=== PATIENT | female | born 1955 | race Caucasian/White ===

== ENCOUNTER 2024-02-27 20:50 | Inpatient (IN) | payer MEDICARE, OTHER ==
[~2024-02-27] VITALS: Ht 157.5 cm; Wt 77.1 kg
[2024-02-27 22:32] LABS: ALBUMIN 3.7 g/dL (3.4-5.0); CALCIUM 9.3 mg/dL (8.5-10.1); CREATININE 0.9 mg/dL (0.6-1.3); POTASSIUM 3.8 mmol/L (3.5-5.1); TOTAL PROTEIN, SERUM 7.5 g/dL (6.4-8.2)
[2024-02-27 22:38] LABS: BASOPHILS % (AUTO) 0.3 % (0.0-2.0); HEMATOCRIT 37.5 % (31.2-41.9); HEMOGLOBIN 12.8 g/dL (10.9-14.3); LYMPHOCYTES # (AUTO) 1.1 K/uL (0.8-4.8); MEAN CORPUSCULAR HGB CONC 34 g/dL (32.3-35.6); MEAN CORPUSCULAR VOLUME 96.2 fL (75.5-95.3); MONOCYTES # (AUTO) 0.9 K/uL (0.1-1.30); MONOCYTES % (AUTO) 11.3 % (0.0-11.0); NEUTROPHILS # (AUTO) 6.1 K/uL (1.8-8.9); NEUTROPHILS % (AUTO) 74.4 % (38.5-71.5); PLATELET COUNT (AUTO) 352 K/uL (179-408); RED BLOOD CELL COUNT(AUTO) 3.89 MIL/uL (3.63-4.92); RED CELL DISTRIBUTION WIDTH 13.7 % (12.3-17.7); WHITE BLOOD COUNT (AUTO) 8.2 K/uL (3.8-11.8)
[2024-02-27] MEDS: IV NS 1000 ML 1,000 ML IV ONE (23:45)
[2024-02-28] MEDS ORDERED: ALPR0.5T8 PO (14:04)
[2024-02-28] MEDS ORDERED: SUCR1TAB PO (14:04)
[2024-02-28] MEDS ORDERED: CLOP75TA33 PO (14:04)
[2024-02-28] MEDS ORDERED: ASPI81TA31 PO (14:04)
[2024-02-28] MEDS ORDERED: AMLO-212 PO (14:04)
[2024-02-28] MEDS ORDERED: FAMO20TA8 PO (14:04)
[2024-02-28] MEDS ORDERED: LEVO75TA7 PO (14:04)
[2024-02-28] MEDS ORDERED: ATOR80TA PO (14:04)
[2024-02-28] MEDS ORDERED: SUCRALFATE 1 G/10 ML LIQUID UDC ONE ×2 (16:59→21:43)
[2024-02-28] MEDS: SUCRALFATE 1 G TABLET PO SCH (17:00)
[2024-02-29] MEDS ORDERED: CLOPIDOGREL 75 MG TABLET PO SCH (07:00)
[2024-02-29] MEDS ORDERED: LEVOTHYROXINE SODIUM 75 MCG TABLET ONE (07:01)
[2024-02-29] MEDS: LEVOTHYROXINE SODIUM 75 MCG TABLET PO SCH (07:06)
[2024-02-29 07:25] LABS: BASOPHILS % (AUTO) 0.5 % (0.0-2.0); EOSINOPHILS % (AUTO) 0.1 % (0.0-7.0); HEMATOCRIT 37.6 % (31.2-41.9); HEMOGLOBIN 13.2 g/dL (10.9-14.3); LYMPHOCYTES # (AUTO) 1.5 K/uL (0.8-4.8); LYMPHOCYTES % (AUTO) 19.1 % (20.5-51.5); MEAN CORPUSCULAR HEMOGLOBIN 33.9 uug (24.7-32.8); MEAN CORPUSCULAR HGB CONC 35 g/dL (32.3-35.6); MEAN CORPUSCULAR VOLUME 96.9 fL (75.5-95.3); MONOCYTES # (AUTO) 0.9 K/uL (0.1-1.30); MONOCYTES % (AUTO) 11.3 % (0.0-11.0); NEUTROPHILS # (AUTO) 5.5 K/uL (1.8-8.9); PLATELET COUNT (AUTO) 319 K/uL (179-408); RED BLOOD CELL COUNT(AUTO) 3.88 MIL/uL (3.63-4.92); RED CELL DISTRIBUTION WIDTH 13.9 % (12.3-17.7)
[2024-02-29] MEDS: SUCRALFATE 1 G TABLET PO SCH (07:30)
[2024-02-29 07:33] LABS: DIFFERENTIAL COMMENT 1
[2024-02-29 07:45] LABS: CREATININE 0.8 mg/dL (0.6-1.3); MAGNESIUM 2.3 mg/dL (1.8-2.4); PHOSPHOROUS 2.9 mg/dL (2.5-4.9); POTASSIUM 3.4 mmol/L (3.5-5.1)
[2024-02-29 08:06] LABS: THYROID STIMULATING HORMONE 8.25 mIU/mL (0.358-3.740)
[2024-02-29] MEDS ORDERED: ASPIRIN 81 MG TAB.CHEW ONE (08:45)
[2024-02-29] MEDS ORDERED: FAMOTIDINE 20 MG TABLET ONE (08:45)
[2024-02-29] MEDS ORDERED: CLOPIDOGREL 75 MG TABLET ONE (08:45)
[2024-02-29] MEDS ORDERED: AMLODIPINE 5 MG TABLET ONE (08:45)
[2024-02-29] MEDS: ASPIRIN 81 MG TAB.CHEW PO SCH (08:55)
[2024-02-29] MEDS: CLOPIDOGREL 75 MG TABLET PO SCH (08:55)
[2024-02-29] MEDS: AMLODIPINE 5 MG TABLET PO SCH (08:55)
[2024-02-29] MEDS: FAMOTIDINE 20 MG TABLET PO SCH (08:55)
[2024-02-29] MEDS ORDERED: ATORVASTATIN 40 MG TABLET PO SCH (09:00)
[2024-02-29] MEDS: ATORVASTATIN 40 MG TABLET PO SCH (21:00)
[2024-02-29 21:20] VITALS: BP 149/83; TEMP 98.8; O2SAT 96
[2024-02-29] MEDS ORDERED: ZOLPIDEM 5 MG TABLET PO PRN ×2 (21:45)
[2024-02-29] MEDS ORDERED: ACETAMINOPHEN 325 MG TABLET PO PRN (21:45)
[2024-02-29] MEDS ORDERED: LORAZEPAM 0.5 MG TABLET PO PRN ×2 (21:45)
[2024-02-29] MEDS ORDERED: MAGNESIUM HYDROXIDE 30 ML LIQUID UDC PO PRN (21:45)
[2024-02-29] MEDS ORDERED: MAG HYDROX/AL HYDROX/SIMETH 30 ML LIQUID UDC PO PRN (21:45)
[2024-02-29] MEDS: BLOOD SUGAR DIAGNOSTIC 1 EACH STRIP VI ONE (22:20)
[2024-03-01] MEDS: LEVOTHYROXINE SODIUM 88 MCG TABLET PO SCH (06:46)
[2024-03-01] MEDS ORDERED: LEVOTHYROXINE SODIUM 75 MCG TABLET PO SCH (07:00)
[2024-03-01] MEDS ORDERED: LORAZEPAM 0.5 MG TABLET PO PRN (08:00)
[2024-03-01 11:28] VITALS: BP 161/66; TEMP 98; O2SAT 100
[2024-03-01] MEDS: ESCITALOPRAM OXALATE 10 MG TABLET PO SCH (12:28)
[2024-03-01 15:26] VITALS: BP 133/64; TEMP 98; O2SAT 100
[2024-03-01 20:00] VITALS: BP 157/73; TEMP 98.2; O2SAT 97
[2024-03-01] MEDS: LORAZEPAM 1 MG TABLET PO PRN (20:41)
[2024-03-02 07:57] VITALS: BP 160/66; TEMP 98.4; O2SAT 99
[2024-03-02 15:04] VITALS: BP 116/74; TEMP 98; O2SAT 96
[2024-03-02 20:00] VITALS: BP 155/75; TEMP 98.6; O2SAT 97
[2024-03-03 08:12] VITALS: BP 137/72; TEMP 98.2; O2SAT 96
[2024-03-03 16:04] VITALS: BP 154/73; TEMP 98; O2SAT 96
[2024-03-03] MEDS: ENSURE ENLIVE (VAN) 240 ML LIQUID PO SCH (17:39)
[2024-03-03 20:00] VITALS: BP 138/72; TEMP 98; O2SAT 94
[2024-03-04 08:07] VITALS: BP 177/88; TEMP 97.7; O2SAT 100
[2024-03-04] MEDS: OLANZAPINE 2.5 MG TABLET PO SCH (09:43)
[2024-03-04 16:14] VITALS: BP 137/68; TEMP 97.4; O2SAT 100
[2024-03-04 20:33] VITALS: BP 142/66; TEMP 97.8; O2SAT 97
[2024-03-05 08:16] VITALS: BP 110/60; TEMP 98.2; O2SAT 100
[2024-03-05 16:10] VITALS: BP 122/51; TEMP 98.2; O2SAT 100
[2024-03-05 20:00] VITALS: BP 115/65; TEMP 98.6; O2SAT 95
[2024-03-06 08:10] VITALS: BP 149/75; TEMP 98.2; O2SAT 96
[2024-03-06 16:10] VITALS: BP 155/55; TEMP 97.8; O2SAT 98
[2024-03-06 20:09] VITALS: BP 146/76; TEMP 98.1; O2SAT 96
[2024-03-07 08:10] VITALS: BP 146/58; TEMP 98.3; O2SAT 96
[2024-03-07] MEDS: VENLAFAXINE XR 37.5 MG CAP.SR.24H PO SCH (09:12)
[2024-03-07 16:10] VITALS: BP 128/61; TEMP 98; O2SAT 98
[2024-03-07 19:53] VITALS: BP 139/63; TEMP 98.2; O2SAT 96
[2024-03-08 09:40] VITALS: BP 128/62; TEMP 98; O2SAT 100
[2024-03-08] MEDS: GUAIFENESIN/DEXTROMETHORPHAN 5 ML UDC PO PRN (13:41)
[2024-03-08 16:02] VITALS: BP 130/60; TEMP 98
[2024-03-08 19:57] VITALS: BP 123/60; TEMP 98.1; O2SAT 95
[2024-03-09] MEDS: LEVOTHYROXINE SODIUM 100 MCG TABLET PO SCH (06:46)
[2024-03-09] MEDS ORDERED: LEVOTHYROXINE SODIUM 88 MCG TABLET PO SCH (07:00)
[2024-03-09 08:10] VITALS: BP 132/55; TEMP 98.1; O2SAT 100
[2024-03-09 16:08] VITALS: BP 143/62; TEMP 97.8; O2SAT 100
[2024-03-09 20:00] VITALS: BP 140/49; TEMP 97.5; O2SAT 98
[2024-03-10 07:54] VITALS: BP 133/74; TEMP 98; O2SAT 96
[2024-03-10 15:17] VITALS: BP 146/71; TEMP 98; O2SAT 98
[2024-03-10 19:54] VITALS: BP 124/63; TEMP 98.3; O2SAT 97
[2024-03-11 08:08] VITALS: BP 146/62; TEMP 98; O2SAT 96
[2024-03-11 17:41] VITALS: BP 121/56; TEMP 99; O2SAT 98
[2024-03-11 20:07] VITALS: BP 139/59; TEMP 97.8; O2SAT 94
[2024-03-12 08:58] VITALS: BP 144/73; TEMP 98.2; O2SAT 96
[2024-03-12] MEDS ORDERED: LEVO100T10 PO (12:29)
[2024-03-12] MEDS ORDERED: ATOR40TA PO (12:29)
[2024-03-12] MEDS ORDERED: SUCR1TAB31 PO (12:29)
[2024-03-12] MEDS ORDERED: Lactose-Free Food PO (12:29)
[2024-03-12] MEDS ORDERED: CLOP75TA33 PO (12:29)
== END 2024-03-12 12:56 | disposition home or self-care (01) | DRG 880 ==
LOC: ER 21:05 → UNDOADMIN 02-29 17:47 → GPS 02-29 17:47
PROVIDERS: ADMIT Psychiatry & Neurology Psychiatry; ATTEND Nurse Practitioner Family
DX: F43.0 Acute stress reaction (principal); I69.354 Hemiplegia and hemiparesis following cerebral infarction affecting left non-dominant side; E87.1 Hypo-osmolality and hyponatremia; R45.851 Suicidal ideations; F33.3 Major depressive disorder, recurrent, severe with psychotic symptoms; I69.392 Facial weakness following cerebral infarction; F41.9 Anxiety disorder, unspecified; I10 Essential (primary) hypertension; E03.9 Hypothyroidism, unspecified; E78.5 Hyperlipidemia, unspecified; E66.9 Obesity, unspecified; Z68.31 Body mass index [BMI] 31.0-31.9, adult; Z63.4 Disappearance and death of family member; E86.1 Hypovolemia; Z79.899 Other long term (current) drug therapy; Z79.890 Hormone replacement therapy
CPT/HCPCS: 36415; 71045; 83735; 84100; 84443; 85025; A4606; A4663; J7040